=== PATIENT | male | born 1995 | race African-American/Black ===

== ENCOUNTER 2018-11-04 12:09 | Emergency (ER) | payer BC, OTHER | END 2018-11-04 12:35 | disposition home or self-care (01) | LOC: ER FS 12:09 ==

== ENCOUNTER 2018-12-01 07:55 | Emergency (ER) | payer BC ==
[~2018-12-01] VITALS: Ht 180.3 cm; Wt 70.3 kg
[~2018-12-01 07:55] MED LIST: ONDA4TAB11 PO
--- NOTE | 2018-12-01 08:54 | Diagnostic Imaging Report ---
Indication: Back pain, lifting injury AP and lateral views of the thoracic spine are obtained. The thoracic vertebrae appear normal in height and alignment. There is no fracture or subluxation. Disc spaces appear unremarkable. Impression: Negative thoracic spine series. Dictated by: Dictated on workstation # [id number]
[2018-12-01] MEDS ORDERED: CYCL10TA9 PO (08:58)
--- NOTE | 2018-12-01 08:59 | ED Back Pain ---
General Chief Complaint: Back Problems Stated Complaint: BACK PAIN Nursing Triage Note: Patient c/o back pain. States that his back has been hurting for the past 2 days and today while at work he was lifting a window that weighs around 150lbs over his head when he got a sharp pinching pain in his back. Reports that the pain is located between his shoulder blades. Nursing Sepsis Screen: No Definite Risk Source of Information: Patient History of Present Illness Date Seen by Provider: Dec 01, 2018 Time Seen by Provider: 08:55 Initial Comments Patient is 23-year-old male presents with sharp upper thoracic back pain after lifting heavy windows above his head. Patient reports muscle pain/spasm. Denies midline back pain. Chest pain shortness of breath. No other acute symptoms or complaints. Patient's her therapist taken prior to ED arrival. Location: T-Spine Timing/Duration: 1-3 Hours Pain/Injury Location: Back Allergies and Home Medications Home Medications Ondansetron 4 Mg Tab.rapdis, 4 MG PO Q6H PRN for NAUSEA/VOMITING Prescribed by: SHALONDA HAYES on 11/04/18 1224 Patient Home Medication List Home Medication List Reviewed: Yes Review of Systems Constitutional: no symptoms reported EENTM: no symptoms reported Respiratory: no symptoms reported Cardiovascular: no symptoms reported Gastrointestinal: no symptoms reported Genitourinary: no symptoms reported Musculoskeletal: back pain Skin: no symptoms reported Psychiatric/Neurological: No Symptoms Reported Past Cojgibk-Hnmzgd-Grxxoj Hx Past Med/Social Hx: Reviewed Nursing Past Med/Soc Hx Patient Social History Alcohol Use: Denies Use Recreational Drug Use: No Smoking Status: Current Everyday Smoker Type Used: Cigarettes 2nd Hand Smoke Exposure: No Recent Foreign Travel: No Contact w/Someone Who Travel: No Recent Infectious Disease Expo: No Recent Hopitalizations: No Physical Abuse: No Sexual Abuse: No Mistreated: No Fear: No Seasonal Allergies Seasonal Allergies: No Past Medical History Surgeries: No Respiratory: No Cardiac: No Neurological: No Genitourinary: No Gastrointestinal: No Musculoskeletal: No Endocrine: No HEENT: No Cancer: No Psychosocial: No Integumentary: No Blood Disorders: No Physical Exam Vital Signs Vital Signs - First Documented 12/01/18 08:01 Temp 97.1 Pulse 82 Resp 16 B/P (MAP) 122/79 (93) Pulse Ox 98 O2 Delivery Room Air Capillary Refill : Less Than 3 Seconds Height, Weight, BMI Height: 5'11.00" Weight: 155lbs. oz. 70.904859gr; BMI Method:Stated General Appearance: No Apparent Distress HEENT: PERRL/EOMI, TMs Normal Neck: Full Range of Motion, Normal Inspection Respiratory: Chest Non Tender, Lungs Clear Back: Muscle Spasm; No Vertebral Tenderness; Other (awning of thoracic spine with lordosis) Neurologic/Psychiatric: Alert, Oriented x3 Progress/Results/Core Measures Results/Orders My Orders Orders - RICHY EMTCALF DO Thoracic Spine 2 View Only (12/01/18 08:06) Vital Signs/I&O 12/01/18 08:01 Temp 97.1 Pulse 82 Resp 16 B/P (MAP) 122/79 (93) Pulse Ox 98 O2 Delivery Room Air Blood Pressure Mean: 93 Departure Communication (Admissions) Mechanical back pain. Recommend supportive care with PCP or chiropractic follow- up. Impression Primary Impression: Back strain of thoracic region Disposition: 01 HOME, SELF-CARE Condition: Stable Departure-Patient Inst. Decision time for Depature: 08:57 Referrals: NO,LOCAL PHYSICIAN (PCP) Primary Care Physician Patient Instructions: Muscle Strain (DC) Add. Discharge Instructions: Please take 600 mg of ibuprofen 3 times daily and Flexeril as needed for additional relief. Follow up with local primary care physician or chiropractor. All discharge instructions reviewed with patient and/or family. Voiced understanding. Scripts Cyclobenzaprine HCl (Cyclobenzaprine HCl) 10 Mg Tablet 10 MG PO Q8H PRN for SPASMS, #30 TAB 0 Refills Prov: RICHY METCALF DO 12/01/18 RICHY METCALF DO Dec 01, 2018 08:58
[2018-12-01 09:04] VITALS: BP 122/79
== END 2018-12-01 09:04 | disposition home or self-care (01) ==
LOC: EDUNIT# 07:55 → ER FS 07:56
DX: S29.012A Strain of muscle and tendon of back wall of thorax, initial encounter (principal); F17.210 Nicotine dependence, cigarettes, uncomplicated; X50.0XXA Overexertion from strenuous movement or load, initial encounter; Y92.59 Other trade areas as the place of occurrence of the external cause; Y99.0 Civilian activity done for income or pay
CPT/HCPCS: 72070

== ENCOUNTER 2018-12-03 10:11 | Emergency (ER) | payer BC ==
[~2018-12-03] VITALS: Ht 180.3 cm; Wt 72.6 kg
[~2018-12-03 10:11] MED LIST changes: +CYCL10TA9 PO
[2018-12-03] MEDS ORDERED: IBUPROFEN 600 MG (MOTRIN) TAB PO ONE (10:30)
--- NOTE | 2018-12-03 10:34 | ED Upper Extremity ---
General Chief Complaint: Upper Extremity Stated Complaint: RT HAND INJ Nursing Triage Note: Patient hit back of R hand on a doorway last night. Stated this morning he woke up and had swelling on lateral side of hand and pain. Is able to move fingers with increased pain. Is currently rating pain at 6/10. Has not taken any medicine for pain. Nursing Sepsis Screen: No Definite Risk Source: patient Exam Limitations: no limitations History of Present Illness Date Seen by Provider: Dec 03, 2018 Time Seen by Provider: 10:20 Initial Comments The patient is very pleasant 23-year-old male who presents for evaluation of right hand injury. He states last night he hit the back of his hand on a door jamb accidentally while trying to exercise. He is having pain over the fourth and fifth metacarpals of the right hand and has significant overlying swelling. He states that he try to go to work today but was unable to do his job because of the pain. He drove himself to the emergency department by using his left arm but is right-hand dominant. He denies any other injuries or complaints. He specifically denies any wrist pain. He denies previous significant injury to the right hand. Onset: yesterday Severity: moderate Pain/Injury Location: right hand Method of Injury: direct blow Modifying Factors: Improves With Cold Therapy (helps) Allergies and Home Medications Allergies Coded Allergies: No Known Drug Allergies (Unverified , 12/03/18) Home Medications Cyclobenzaprine HCl 10 Mg Tablet, 10 MG PO Q8H PRN for SPASMS Prescribed by: RICHY METCALF on 12/01/18 0858 Ondansetron 4 Mg Tab.rapdis, 4 MG PO Q6H PRN for NAUSEA/VOMITING Prescribed by: SHALONDA HAYES on 11/04/18 1224 Patient Home Medication List Home Medication List Reviewed: Yes Review of Systems Constitutional: no symptoms reported EENTM: no symptoms reported Respiratory: no symptoms reported Cardiovascular: no symptoms reported Gastrointestinal: no symptoms reported Genitourinary: no symptoms reported Musculoskeletal: other (right hand pain and swelling) Skin: no symptoms reported Psychiatric/Neurological: No Symptoms Reported All Other Systems Reviewed Negative Unless Noted: Yes Past Bjqhzge-Redvxh-Ixxghl Hx Past Med/Social Hx: Reviewed Nursing Past Med/Soc Hx Patient Social History Alcohol Use: Denies Use Recreational Drug Use: No Type Used: Cigarettes 2nd Hand Smoke Exposure: No Recent Foreign Travel: No Contact w/Someone Who Travel: No Recent Infectious Disease Expo: No Recent Hopitalizations: No Physical Abuse: No Sexual Abuse: No Mistreated: No Fear: No Seasonal Allergies Seasonal Allergies: No Past Medical History Surgeries: No Respiratory: No Cardiac: No Neurological: No Genitourinary: No Gastrointestinal: No Musculoskeletal: No Endocrine: No HEENT: No Cancer: No Psychosocial: No Integumentary: No Blood Disorders: No Physical Exam Vital Signs Vital Signs - First Documented 12/03/18 10:15 Temp 99.5 Pulse 88 Resp 18 B/P (MAP) 164/101 (122) Pulse Ox 95 Capillary Refill : Less Than 3 Seconds Height, Weight, BMI Height: 5'11.00" Weight: 160lbs. oz. 72.987979la; BMI Method:Stated General Appearance: WD/WN, no apparent distress HEENT: PERRL/EOMI, normal ENT inspection, TMs normal, pharynx normal Cardiovascular: regular rate, rhythm, no edema, no JVD Respiratory: chest non-tender, no respiratory distress Shoulder: normal inspection, no evidence of injury, normal ROM Elbow/Forearm: normal inspection, no evidence of injury, normal ROM Wrist: Yes normal inspection, Yes no evidence of injury, Yes normal ROM Hand: Right, bone tenderness (over 4th and 5th metacarpals), swelling (moderate swelling over dorsal 4th/5th metacarpals) Neurologic/Psychiatric: enterprise analyst II-XII nml as tested, no motor/sensory deficits, alert, normal mood/affect, oriented x 3 Skin: normal color, warm/dry Progress/Results/Core Measures Results/Orders My Orders Orders - NABIL HERNANDES DO Hand 3 View Right (12/03/18 10:18) Ice: Apply To Affected Area (12/03/18 10:18) Ibuprofen Tablet (Motrin Tablet) (12/03/18 10:30) Medications Given in ED Current Medications Medications Dose Ordered Sig/Timoteo Route Start Time Stop Time Status Last Admin Dose Admin Ibuprofen 600 mg ONCE ONCE PO 12/03/18 10:30 12/03/18 10:31 DC 12/03/18 10:31 600 MG Vital Signs/I&O 12/03/18 10:15 Temp 99.5 Pulse 88 Resp 18 B/P (MAP) 164/101 (122) Pulse Ox 95 Blood Pressure Mean: 122 Progress Progress Note : Progress Note @1110 - Patient updated on imaging results which show an angulated fifth metacarpal fracture on the right. He will be splinted and will follow up with orthopedics. The patient was able to view the images himself. He expresses verbal understanding that he will need to follow-up with orthopedics as soon as possible prior to significant bone healing as this could require placement for better healing and reduced arthritis in the future. The patient will go home with a prescription for [place]. He is stable for discharge at this time. Diagnostic Imaging Diagonstic Imaging: Xray Comments [facility] [place], [place] NAME: LASHAWN RICCI MED REC#: [id number] PT STATUS: REG ER : 1995 PHYSICIAN: NABIL HERNANDES DO ADMIT DATE: 12/03/18/ER FS Draft Date of Exam:12/03/18 HAND 3 VIEW RIGHT Indication: Right hand pain. Time of exam 10:05 AM 3 views of the right hand were obtained. There is a fracture of the distal fifth metacarpal. Minimal volar angulation of the distal fracture fragment is noted. Remaining metacarpals and phalanges are intact. Carpus is intact. Impression: Mildly angulated distal fifth metacarpal fracture. Dictated on workstation # [id number] Dict: 12/03/18 1033 Trans: 12/03/18 1040 [facility] [id number] Interpreted by: JODI IZQUIERDO MD Electronically signed by: Departure Impression Primary Impression: Fracture of fifth metacarpal bone of right hand Disposition: 01 HOME, SELF-CARE Condition: Stable Departure-Patient Inst. Decision time for Depature: 11:00 Referrals: ANDREW SHIN MD Patient Instructions: Boxer's Fracture, Hand Fracture Add. Discharge Instructions: To the prescribed medicine as instructed. Follow-up with the orthopedic surgeon provided. Apply ice as needed to reduce swelling. Wear the splint provided until cleared by orthopedics. Return to emergency department immediately for new or worsening symptoms. Scripts Hydrocodone/Acetaminophen ([place] 5-325 Tablet) 1 Each Tablet 1 TAB PO Q4-6HR for Pain MDD 10 TABS for 7 Days, #15 TAB Prov: NABIL HERNANDES DO 12/03/18 Work/School Note: Work Release Form Date Seen in the Emergency Department: Dec 03, 2018 Return to Work: Dec 04, 2018 NABIL HERNANDES DO Dec 03, 2018 10:34
--- NOTE | 2018-12-03 10:41 | Diagnostic Imaging Report ---
Indication: Right hand pain. Time of exam 10:05 AM 3 views of the right hand were obtained. There is a fracture of the distal fifth metacarpal. Minimal volar angulation of the distal fracture fragment is noted. Remaining metacarpals and phalanges are intact. Carpus is intact. Impression: Mildly angulated distal fifth metacarpal fracture. Dictated by: Dictated on workstation # [id number]
[2018-12-03] MEDS ORDERED: HYDR-4226 PO (11:04)
[2018-12-03 11:46] VITALS: BP 133/94
== END 2018-12-03 11:50 | disposition home or self-care (01) ==
LOC: EDUNIT# 10:11 → ER FS 10:12
DX: S62.396A Other fracture of fifth metacarpal bone, right hand, initial encounter for closed fracture (principal); W22.8XXA Striking against or struck by other objects, initial encounter
CPT/HCPCS: 29125; 73130

== ENCOUNTER 2018-12-23 13:54 | Emergency (ER) | payer BC ==
[~2018-12-23] VITALS: Ht 180.3 cm; Wt 72.6 kg
[~2018-12-23 13:54] MED LIST changes: +HYDR-4226 PO
--- NOTE | 2018-12-23 14:09 | ED Upper Extremity ---
General Chief Complaint: Upper Extremity Stated Complaint: RT HAND PAIN History of Present Illness Date Seen by Provider: Dec 23, 2018 Time Seen by Provider: 14:09 Initial Comments Patient sustained right fifth metacarpal fracture on December 03 and now has decreased flexion of that finger and has not been going to work as he has not been cleared to go back to work. He says he has been trying to follow with orthopedics for the last week but they have not been answering the phone. 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 Allergies and Home Medications Allergies Coded Allergies: No Known Drug Allergies (Unverified , 12/03/18) Home Medications Cyclobenzaprine HCl 10 Mg Tablet, 10 MG PO Q8H PRN for SPASMS Prescribed by: RICHY METCALF on 12/01/18 0858 Hydrocodone/Acetaminophen 1 Each Tablet, 1 TAB PO Q4-6HR Prescribed by: NABIL HERNANDES on 12/03/18 1104 Ondansetron 4 Mg Tab.rapdis, 4 MG PO Q6H PRN for NAUSEA/VOMITING Prescribed by: SHALONDA HAYES on 11/04/18 1224 Patient Home Medication List Home Medication List Reviewed: Yes Review of Systems Constitutional: no symptoms reported Musculoskeletal: other (joint pain with decreased rom in R hand) All Other Systems Reviewed Negative Unless Noted: Yes Past Pdfhnhw-Mmlmvz-Emyecw Hx Patient Social History Type Used: Cigarettes 2nd Hand Smoke Exposure: No Recent Hopitalizations: No Seasonal Allergies Seasonal Allergies: No Past Medical History Surgeries: No Respiratory: No Cardiac: No Neurological: No Genitourinary: No Gastrointestinal: No Musculoskeletal: No Endocrine: No HEENT: No Cancer: No Psychosocial: No Integumentary: No Blood Disorders: No Physical Exam Vital Signs Capillary Refill : Height, Weight, BMI Height: 5'11.00" Weight: 160lbs. oz. 72.714320ys; BMI Method:Stated General Appearance: no apparent distress Hand: deformity (R distal metacarpal bone deformity. NV exam normal.) Progress/Results/Core Measures Progress Progress Note : Progress Note Patient cannot completely flex his right pinky finger possibly related to this injury. I told him that this will not likely get better and his only option would be to try and follow with orthopedics to see if they could re-break it didn't penetrate although I'm not sure if they would do something like this. At this point I told him he is likely going to be at this baseline and if he d oesn't want to lose his job he needs to be cleared to go back to work. Patient said that he is comfortable going back to work but I told him he should follow with occupational health in [place] and also the orthopedic doctor to see if he can get further help with his hand. Patient discharged in stable condition. Departure Impression Primary Impression: Closed fracture of 5th metacarpal Qualified Codes: S62.326P - Displaced fracture of shaft of fifth metacarpal bone, right hand, subsequent encounter for fracture with malunion Disposition: HOME, SELF-CARE Condition: Stable Departure-Patient Inst. Referrals: NO,LOCAL PHYSICIAN (PCP/Family) Primary Care Physician Patient Instructions: Hand Fracture (DC) Work/School Note: Work Release Form Date Seen in the Emergency Department: Dec 23, 2018 Return to Work: Dec 24, 2018 Restrictions: Follow Up With [facility] SALLY THURMAN DO Dec 23, 2018 14:09
--- NOTE | 2018-12-23 14:32 | NUR ---
Appointment was made for Friday at 0930 in [place] with Brian Nagel APRN for follow-up with Ortho. Patient was given time and number to call for any information/inquiries at [phone]
[2018-12-23 14:38] VITALS: BP 126/83
--- NOTE | 2018-12-23 14:38 | NUR ---
Patient discharged to home after review of home instructions. Pt reports gratitude for assistance getting an appt made for him with Brian COPOER as he has been calling and leaving messages. Pt given copies of records for use with appts.
== END 2018-12-23 14:38 | disposition home or self-care (01) ==
LOC: ER FS 13:54 → EDUNIT# 13:54 → ER FS 14:38
DX: S62.396D Other fracture of fifth metacarpal bone, right hand, subsequent encounter for fracture with routine healing (principal); X58.XXXD Exposure to other specified factors, subsequent encounter
CPT/HCPCS: 99282

== ENCOUNTER → 2018-12-28 | Outpatient (CLI) | payer BC ==
--- NOTE | 2018-12-28 11:30 | Diagnostic Imaging Report ---
INDICATION: Followup fracture. COMPARISON: None FINDINGS: 3 radiographic views of the right hand were again obtained. Again identified is nonacute transverse oriented fracture of the distal fifth metacarpal. There is slight anterior subluxation of distal fracture fragment, as well as mild proximal retraction. There may be some early surrounding callus formation. Otherwise, no significant interval healing is identified. No new acute fracture or dislocation is seen. Osseous structures are intact. IMPRESSION: 1. Redemonstration of nonacute fracture of the fifth metacarpal as described above. Dictated by: Dictated on workstation # [id number]
== END ==
LOC: RAD FS 10:51
PROVIDERS: ATTEND Nurse Practitioner
DX: S62.306D Unspecified fracture of fifth metacarpal bone, right hand, subsequent encounter for fracture with routine healing (principal)
CPT/HCPCS: 73130

== ENCOUNTER → 2019-01-18 | Outpatient (CLI) | payer BC ==
--- NOTE | 2019-01-18 09:20 | Diagnostic Imaging Report ---
INDICATION: Displaced fracture of neck of the 5th metacarpal bone right hand. FINDINGS: 3 views of the right hand are compared to exam from December 28. There's been no change in position or alignment of the distal fifth metacarpal fracture. There is slight anterior subluxation of the distal fracture fragment and proximal retraction. Early callus formation has continued to advance. IMPRESSION: There is early callus formation of the fifth metacarpal fracture. No change in position or alignment. Dictated by: Dictated on workstation # [id number]
== END ==
LOC: RAD FS 08:55
PROVIDERS: ATTEND Nurse Practitioner
DX: S62.336A Displaced fracture of neck of fifth metacarpal bone, right hand, initial encounter for closed fracture (principal); X58.XXXA Exposure to other specified factors, initial encounter
CPT/HCPCS: 73130